=== PATIENT | male | born 1940 | race Hispanic/Latino ===

== ENCOUNTER 2017-12-02 16:10 | Inpatient (IN) | payer OTHER ==
[2017-12-02 16:24] VITALS: BMI 23.6
--- NOTE | 2017-12-02 16:59 | ED PDOC ---
HPI: General Adult Time Seen by Provider: 12/02/17 16:37 Chief Complaint (Nursing): Abnormal Labs Chief Complaint (Provider): abnormal labs History Per: Patient History/Exam Limitations: no limitations Current Symptoms Are (Timing): Still Present Recently: Treated By A Physician Additional Complaint(s): 77yo male sent by PMD for outpatient labs noted today to have critical Hgb level 3.9. States has felt weak with exercise intolerance, noted dark stool and BRBPR. Also notes intermittent chest pains radiating to back and shoulder, none currently. Takes no Rx medications, hasnt been to a PMD since the . Past Medical History Vital Signs: Last Vital Signs Temp 97.8 F 12/02/17 16:23 Pulse 79 12/02/17 16:23 Resp 16 12/02/17 16:23 BP 124/57 L 12/02/17 16:23 Pulse Ox 92 L 12/02/17 16:23 - Allergies Allergies/Adverse Reactions: Allergies Allergy/AdvReac Type Severity Reaction Status Date / Time No Known Allergies Allergy Verified 12/02/17 16:48 - ECG O2 Sat by Pulse Oximetry: 92 Disposition - Disposition
[2017-12-02 17:39] LABS: BASO # 0.1 K/uL (0.0-0.2); BASO % 1.6 % (0.0-2.0); EOS % 1.1 % (0.0-4.0); INR 1.3; LYMPH # 1.8 K/uL (1.0-4.3); LYMPH % 50.3 % (20.0-40.0); MEAN PLATELET VOLUME 8.5 fl (7.2-11.7); MONO # 0.2 K/uL (0.0-0.8); MONO % 5.4 % (0.0-10.0); NEUT # 1.5 K/uL (1.8-7.0); NEUT % 41.6 % (50.0-75.0); NRBC % 0.3 % (0.0-0.0); PROTHROMBIN TIME 14.3 Seconds (9.8-13.1); RBC 3.15 Mil/uL (4.40-5.90); RED CELL DISTRIBUTION WIDTH 24.5 % (11.5-14.5); WHITE BLOOD COUNT 3.5 K/uL (4.8-10.8)
[2017-12-02 17:42] LABS: PARTIAL THROMBOPLASTIN TIME 30.9 Seconds (25.6-37.1)
[2017-12-02 17:59] LABS: ALB/GLOB RATIO 1.4 (1.0-2.1); ALBUMIN 4.6 g/dL (3.5-5.0); ALT/SGPT 25 U/L (21-72); AST/SGOT 28 U/L (17-59); BLOOD UREA NITROGEN 11 mg/dl (9-20); CALCIUM 9.3 mg/dL (8.4-10.2); GFR AFRICAN-AMERICAN > 60; GFR NON-AFRICAN AMERICAN > 60
[2017-12-02] MEDS ORDERED: Iohexol 240 (50 ml) PO ONE (18:11)
[2017-12-02 18:18] LABS: HEMOGLOBIN 4.1 g/dL (12.0-18.0)
[2017-12-02 19:05] LABS: IRON 14 ug/dL (49-181)
[2017-12-02 19:14] LABS: % IRON SATURATION 3 % (20-55); TOTAL IRON BINDING CAPACITY 464 ug/dL (250-450)
--- NOTE | 2017-12-02 19:55 | CP.PCM.HP ---
History of Present Illness - History of Present Illness History of Present Illness: CC: weakness This is a 77 year old male sent by Dr. Franco, his PMD, after finding a low Hg result. The patient has not had a PMD since the 1969's and only two weeks ago began seeing Dr. Franco. 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 He attributes this to a neurologic disorder but does not know what it is. He insists that he never had polio. Over the past 2 years the patient has noticed black stools occasionally and then over the past year began having bright red blood per rectum as well. In the ED, the patient was noted to have a significantly low hemoglobin of 4.1, MCV of 52, consistent with iron deficiency anemia. Patient is being admitted for 3 units PRBC and for gastroenterology evaluation. Last colonoscopy was in 1998, reportedly normal at that time. Of note patient does have history of hemorrhoids and occ painful defecation. Patient denies chest pain, shortness of breath, fevers, chills, nausea, vomiting, diarrhea, headache. All of the patient's and/or family's questions were answered at the bedside. PMD: [place] Present on Admission - Present on Admission Any Indicators Present on Admission: No History of DVT/PE: No History of Uncontrolled Diabetes: No Past Patient History - Past Social History Smoking Status: Unknown If Ever Smoked - NEUROLOGICAL Hx Neurological Disorder: Yes Other/Comment: Paralysis at 16 and walked 63 days later. - PSYCHIATRIC Hx Substance Use: No Meds Allergies/Adverse Reactions: Allergies Allergy/AdvReac Type Severity Reaction Status Date / Time No Known Allergies Allergy Verified 12/02/17 16:48 Physical Exam - Additional Findings Additional findings: Physical exam: Constitutional- cooperative, awake, alert Head- NCAT, PERRL Eye- PERRL, EOMI ENT- normal exam, MMM. Neck- normal inspection, supple, no JVD Respiratory- CTAB, no wheezes rales rhonchi Cardiovascular- RRR, +S1, +S2 no MRG GI/Abdominal- normal bowel sounds, soft, no mass, no hsm Skin- warm, dry. + pale Extremities Exam- normal capillary refill, normal inspection Neurological Exam- alert, awake, oriented Psych- normal mood, normal affect Results - Vital Signs Recent Vital Signs: Last Vital Signs Temp 97.8 F 08/13/18 16:23 Pulse 79 12/02/17 16:23 Resp 16 12/02/17 16:23 BP 124/57 L 12/02/17 16:23 Pulse Ox 92 L 12/02/17 16:59 - Labs Result Diagrams: 12/02/17 17:27 12/02/17 17:27 Labs: Laboratory Results - last 24 hr 12/02/17 12/02/17 12/02/17 17:10 17:27 17:27 WBC 3.5 L RBC 3.15 L Hgb 4.1 L* Hct 16.4 L MCV 52.0 L MCH 13.0 L MCHC 25.0 L RDW 24.5 H Plt Count 266 MPV 8.5 Neut % (Auto) 41.6 L Lymph % (Auto) 50.3 H [place] % (Auto) 5.4 Eos % (Auto) 1.1 Baso % (Auto) 1.6 Neut # (Auto) 1.5 L Lymph # (Auto) 1.8 [place] # (Auto) 0.2 Eos # (Auto) 0.0 Baso # (Auto) 0.1 PT INR APTT Sodium 139 Potassium 3.8 Chloride 102 Carbon Dioxide 23 Anion Gap 18 BUN 11 Creatinine 0.6 L Est GFR ( Amer) > 60 Est GFR (Non-Af Amer) > 60 Random Glucose 92 Calcium 9.3 Iron TIBC % Saturation Ferritin Total Bilirubin 0.8 AST 28 ALT 25 Alkaline Phosphatase 76 Total Protein 7.8 Albumin 4.6 Globulin 3.2 Albumin/Globulin Ratio 1.4 Blood Type A POSITIVE Blood Type Confirm Antibody Screen Negative Crossmatch See Detail BBK History Checked No verified bt 12/02/17 12/02/17 12/02/17 17:27 17:50 18:49 WBC RBC Hgb Hct MCV MCH MCHC RDW Plt Count MPV Neut % (Auto) Lymph % (Auto) [place] % (Auto) Eos % (Auto) Baso % (Auto) Neut # (Auto) Lymph # (Auto) [place] # (Auto) Eos # (Auto) Baso # (Auto) PT 14.3 H INR 1.3 APTT 30.9 Sodium Potassium Chloride Carbon Dioxide Anion Gap BUN Creatinine Est GFR ( Amer) Est GFR (Non-Af Amer) Random Glucose Calcium Iron TIBC % Saturation Ferritin 3.9 L Total Bilirubin AST ALT Alkaline Phosphatase Total Protein Albumin Globulin Albumin/Globulin Ratio Blood Type Blood Type Confirm A POSITIVE Antibody Screen Crossmatch BBK History Checked 12/02/17 18:49 WBC RBC Hgb Hct MCV MCH MCHC RDW Plt Count MPV Neut % (Auto) Lymph % (Auto) [place] % (Auto) Eos % (Auto) Baso % (Auto) Neut # (Auto) Lymph # (Auto) [place] # (Auto) Eos # (Auto) Baso # (Auto) PT INR APTT Sodium Potassium Chloride Carbon Dioxide Anion Gap BUN Creatinine Est GFR ( Amer) Est GFR (Non-Af Amer) Random Glucose Calcium Iron 14 L TIBC 464 H % Saturation 3 L Ferritin Total Bilirubin AST ALT Alkaline Phosphatase Total Protein Albumin Globulin Albumin/Globulin Ratio Blood Type Blood Type Confirm Antibody Screen Crossmatch BBK History Checked Assessment & Plan - Assessment and Plan (Free Text) Plan: This is a 77 year old male sent by Dr. Franco, his PMD, after finding a low Hg result. The patient has not had a PMD since the 1969's and only two weeks ago began seeing Dr. Franco. Over the past 2 years the patient has noticed black stools occasionally and then over the past year began having bright red blood per rectum as well. In the ED, the patient was noted to have a significantly low hemoglobin of 4.1, MCV of 52, consistent with iron deficiency anemia. Patient is being admitted for 3 units PRBC and for gastroenterology evaluation. Last colonoscopy was in 1998, reportedly normal at that time. Of note patient does have history of hemorrhoids and occ painful defecation. Patient denies chest pain, shortness of breath, fevers, chills, nausea, vomiting , diarrhea, headache. All of the patient's and/or family's questions were answered at the bedside. 1) GI bleed, r/o mass vs bleeding hemorrhoid vs other causes of lower gi bleeding. - Admit to telemetry - Consultation with Dr. Rizo appreciated - CT abd/pelvis with IV and PO contrast - 3 units PRBC overnight, repeat CBC in AM - HD stable at this time 2) DVT prophylaxis - SCDs
[2017-12-02] MEDS ORDERED: Iohexol 300 100 ML IJ ONE (20:29)
[2017-12-02] MEDS ORDERED: Sodium Chloride 0.9% 50 ML IV ONE (20:30)
[2017-12-02 21:29] LABS: URINE BACTERIA RARE (<OCC); URINE BILIRUBIN NEGATIVE (NEGATIVE); URINE BLOOD NEGATIVE (NEGATIVE); URINE CLARITY CLEAR (Clear); URINE COLOR COLORLESS (YELLOW); URINE GLUCOSE (UA) NEG (Normal); URINE LEUKOCYTE ESTERASE MOD Leu/uL (Negative); URINE PROTEIN NEGATIVE (NEGATIVE); URINE UROBILINOGEN 0.2-1.0 mg/dL (0.2-1.0)
[2017-12-02] MEDS: Sodium Chloride 0.9% 1,000 ML IV SCH (23:00)
--- NOTE | 2017-12-03 08:43 | RAD ---
HISTORY: COMPARISON: No prior. TECHNIQUE: Chest PA and lateral FINDINGS: LINES AND TUBES: None. LUNG AND PLEURA: The lungs are well inflated and clear. No pleural effusion or pneumothorax. HEART AND MEDIASTINUM: There is mild cardiomegaly. The hilar and mediastinal contours are within normal limits. SKELETAL STRUCTURES: The bony structures are within normal limits for the patient's age. VISUALIZED UPPER ABDOMEN: Normal. OTHER FINDINGS: None. IMPRESSION: No active pulmonary disease.
--- NOTE | 2017-12-03 08:52 | CP.PCM.PN ---
Subjective - Date & Time of Evaluation Date of Evaluation: 12/03/17 Time of Evaluation: 08:00 - Subjective Subjective: Pt feels better , less weak after the blood transfusion staes he has some bright red blood in stool hx of chronic constipation he lives alone walks with walker denies CP no SOB no abd pain no N/V Objective - Vital Signs/Intake and Output Vital Signs (last 24 hours): Temp Pulse Resp BP Pulse Ox 97.6 F 61 20 104/52 L 98 12/03/17 08:28 12/03/17 08:28 12/03/17 08:28 12/03/17 08:28 12/03/17 08:28 Intake and Output: 12/03/17 12/03/17 06:59 18:59 Intake Total 375 425 Balance 375 425 - Medications Medications: Current Medications Ascorbic Acid (Vitamin C 500 Mg Tab) 500 mg PO DAILY [facility] Home Med (Vitamin B Complex [Super B-50 Complex]) 1 cap PO DAILY [facility] Sodium Chloride (Sodium Chloride 0.9%) 1,000 mls @ 75 mls/hr IV .[id number] [facility]NAN[facility]Z Stop: 12/03/17 19:50 Last Admin: 12/02/17 23:00 Dose: 75 mls/hr Iron Sucrose 100 mg/ Sodium (Chloride) 105 mls @ 105 mls/hr IVPB DAILY [facility] Stop: 12/05/17 09:59 Multivitamins/Minerals (Therapeutic-M Tab) 1 tab PO DAILY [facility] Vitamin E (Vitamin E 400 Units Cap) 400 intlu PO DAILY [facility]NANDEZ - Labs Labs: 12/02/17 17:27 12/02/17 17:27 PT 14.3 Seconds (9.8-13.1) H 12/02/17 17:27 INR 1.3 12/02/17 17:27 APTT 30.9 Seconds (25.6-37.1) 12/02/17 17:27 - Constitutional Appears: Non-toxic, No Acute Distress, Chronically Ill - Head Exam Head Exam: NORMAL INSPECTION, NORMOCEPHALIC - Eye Exam Eye Exam: EOMI, Normal appearance Pupil Exam: NORMAL ACCOMODATION - ENT Exam ENT Exam: Mucous Membranes Moist, Normal External Ear Exam - Neck Exam Neck Exam: Full ROM. absent: Meningismus - Respiratory Exam Respiratory Exam: NORMAL BREATHING PATTERN. absent: Respiratory Distress - Cardiovascular Exam Cardiovascular Exam: REGULAR RHYTHM, +S1, +S2 - GI/Abdominal Exam GI & Abdominal Exam: Soft, Normal Bowel Sounds. absent: Tenderness - Extremities Exam Extremities Exam: Normal Capillary Refill. absent: Calf Tenderness, Pedal Edema - Back Exam Back Exam: Full ROM. absent: CVA tenderness (L), CVA tenderness (R) - Neurological Exam Neurological Exam: Alert, Awake, Oriented x3 Neuro motor strength exam: Left Upper Extremity: 5, Right Upper Extremity: 5, Left Lower Extremity: 4, Right Lower Extremity: 4 - Psychiatric Exam Psychiatric exam: Normal Affect, Normal Mood - Skin Skin Exam: Dry, Normal Color, Warm Assessment and Plan - Assessment and Plan (Free Text) Assessment: 77 year old male sent by Dr. Franco, his PMD, after finding a low HgB result. The patient has not had a PMD since the 1969's and only two weeks ago began seeing Dr. Franco. Over the past 2 years the patient has noticed black stools occasionally and then over the past year began having bright red blood per rectum as well. In the ED, the patient was noted to have a significantly low hemoglobin of 4.1, MCV of 52, consistent with iron deficiency anemia. Last colonoscopy was in 1998, reportedly normal at that time. Of note patient does have history of hemorrhoids and occ painful defecation. Patient denies chest pain, shortness of breath, fevers, chills, nausea, vomiting, diarrhea, headache. 1) Severe Anemia sec to Acute and Chronic Blood Loss from GI bleed Etiology of GI Bleeding to be determined - Pt has been feeling weak the past few weeks -Hgb 4.1 on admission - transfused 3 units PRBC overnight- will rpt CBC - Consultation with Dr. Rizo - discussed case, await further recommendation CT abd/pelvis with IV and PO contrast: 1. Distended gallbladder, mild gallbladder wall thickening and cholelithiasis. 2. Mild diffuse dilatation of the common bile duct without evidence for choledocholithiasis. 3. Evaluation of the rectum is limited as oral contrast has not progressed to the rectum at the time of the study. Allowing for this, circumferential mural thickening in the distal rectum and anus is nonspecific and could be related to underdistention however underlying infection/inflammation/neoplasm cannot be excluded. Endoscopic correlation may be performed if clinically indicated. - start Protonix - CEA borderline elevated - Iron low - start Venofer 2. Lower Extremity Weakness , chronic ( hx of Spinal cord injury many years ago ) uses walker at home Physical therapy eval 3) DVT prophylaxis - SCDs - no anticoag sec to GI bleed Full Code Surrogate Decision maker - sister
--- NOTE | 2017-12-03 09:20 | CARD ---
APPROVED REPORT Date of service: 12/02/2017 <Conclusion> Sinus rhythm with premature atrial complexes Nonspecific ST abnormality Abnormal ECG
[2017-12-03 11:28] LABS: MEAN CELL VOLUME 63.1 fl (80.0-94.0); MEAN CORPUSCULAR HEMOGLOBIN 20.3 pg (27.0-31.0); MEAN CORPUSCULAR HGB CONC 32.1 g/dL (33.0-37.0); RBC 3.58 Mil/uL (4.40-5.90); RED CELL DISTRIBUTION WIDTH 36.5 % (11.5-14.5); WHITE BLOOD COUNT 4.9 K/uL (4.8-10.8)
--- NOTE | 2017-12-03 11:44 | CT ---
Date of service: 12/02/2017 PROCEDURE: CT Abdomen and Pelvis with contrast HISTORY: rectal bleed, r/o mass COMPARISON: None. TECHNIQUE: CT scan of the abdomen and pelvis was performed after administration of intravenous contrast. Oral contrast was administered. Coronal and sagittal reformatted images were obtained. Contrast dose: 95 mL Omnipaque 300 Radiation dose: Total exam DLP = 470.61 mGy-cm. This CT exam was performed using one or more of the following dose reduction techniques: Automated exposure control, adjustment of the mA and/or kV according to patient size, and/or use of iterative reconstruction technique. FINDINGS: LOWER THORAX: There is dependent atelectasis in the lung bases. LIVER: Normal in size with homogeneous enhancement. Tiny low-attenuation lesions are too small to characterize by CT criteria. No gross lesion or ductal dilatation. GALLBLADDER AND BILE DUCTS: The gallbladder is distended and there are multiple large gallstones. There is mild gallbladder wall thickening. There is diffuse dilatation of the common bile duct without evidence for choledocholithiasis. PANCREAS: Normal in size with homogeneous enhancement. No gross lesion or ductal dilatation. SPLEEN: Normal in size and appearance. ADRENALS: No discrete nodule. KIDNEYS AND URETERS: Normal in size with homogeneous enhancement. There is a 3 mm nonobstructing stone in the upper pole of the left kidney. No hydronephrosis. No solid mass. VASCULATURE: Atherosclerotic aortoiliac calcifications. No aortic aneurysm. BOWEL: The small bowel loops are normal in caliber. There is mild left colonic diverticulosis without CT evidence for acute diverticulitis. Evaluation of the rectum as oral contrast has not progressed to the rectum. Allowing for this, there is apparent circumferential mural thickening in the distal rectum and anus. APPENDIX: Normal appendix. PERITONEUM: No free fluid. No free air. LYMPH NODES: No enlarged lymph nodes. BLADDER: Unremarkable. REPRODUCTIVE: Normal size prostate gland with central coarse calcifications BONES: No acute fracture. Diffuse bone demineralization and advanced multilevel degenerative disc disease. OTHER FINDINGS: Right inguinal hernia containing small portion of the urinary bladder. IMPRESSION: 1. Distended gallbladder, mild gallbladder wall thickening and cholelithiasis. 2. Mild diffuse dilatation of the common bile duct without evidence for choledocholithiasis. 3. Evaluation of the rectum is limited as oral contrast has not progressed to the rectum at the time of the study. Allowing for this, circumferential mural thickening in the distal rectum and anus is nonspecific and could be related to underdistention however underlying infection/inflammation/neoplasm cannot be excluded. Endoscopic correlation may be performed if clinically indicated. A preliminary report was provided by [email or web address].
[2017-12-03] MEDS: Multivitamin Vitamin B Complex (Nephro-Vite) Tab PO SCH (11:45)
[2017-12-03] MEDS: Multivitamin With Minerals Tab PO SCH (11:45)
[2017-12-03] MEDS: Sodium Chloride 0.9% 1,000 ML IV SCH (11:46)
[2017-12-03 11:47] LABS: HEMOGLOBIN 7.3 g/dL (12.0-18.0)
[2017-12-03 13:11] LABS: BLOOD UREA NITROGEN 9 mg/dl (9-20); CALCIUM 8.7 mg/dL (8.4-10.2); GFR AFRICAN-AMERICAN > 60; GFR NON-AFRICAN AMERICAN > 60
--- NOTE | 2017-12-04 00:52 | CON ---
Copied To: Torito Jaramillo MD Attending MD: Torito Jaramillo MD DATE: 12/03/2017 REFERRED BY: Gigi Langford DO HISTORY OF PRESENT ILLNESS: This is a very pleasant 77-year-old gentleman who has not seen a physician for 20 years with progressive weakness and fatigue, probably prompting him to see a physician who found him to be severely anemic and referred him for admission yesterday here to the hospital where he was found to have a hemoglobin of 4.1. At the time of my evaluation this afternoon, he was lying comfortably in bed. He has no nausea, vomiting or heartburn, but he has been having sometime on and off dysphagia with some difficulty and discomfort when he swallows. He has not had any hematemesis. He denies any abdominal pain or discomfort. He has had some black stools recently and bright red blood per rectum on and off for several years. He did have a colonoscopy back in 1997. MEDICATIONS: He was on no medications. ALLERGIES: HE HAS AN ALLERGY TO PENICILLIN. PAST MEDICAL HISTORY: Noncontributory. PAST SURGICAL HISTORY: He had a surgery in his lower extremity years ago from trauma. He also had paralysis as young man which resolved after two months. It is of unknown etiology. FAMILY HISTORY: Noncontributory. SOCIAL HISTORY: He is a former smoker and drinker, but states he has done neither for over 20 years. PHYSICAL EXAMINATION: GENERAL: He is a well-developed, well-nourished thin gentleman. Awake, alert and oriented x3, in no acute distress. VITAL SIGNS: Stable. He is afebrile. ABDOMEN: Soft, flat with positive bowel sounds. Nontender, nondistended. No hepatosplenomegaly is appreciated on exam. LABORATORY DATA: His initial hemoglobin is 4.1. After three units today, it is up to 7.3. His white count is normal. His platelets are normal as well. SMA-7 is unremarkable. LFTs are all within normal limits. The CEA level is pending. CAT scan shows some gallstones, gallbladder wall thickening, mildly dilated CBD, and under distention of the rectum circumferential thickened look to the rectal wall of unclear etiology. IMPRESSION AND PLAN: A 77-year-old gentleman with severe anemia as well as gallstones and dilated common bile duct, referred for gastroenterology evaluation. He seems to be asymptomatic from the gallstones. The liver function tests are normal. Therefore, I doubt that he has any choledocholithiasis nor do I think he needs a laparoscopic cholecystectomy at this point in time given his lack of symptomatology. However, he surely does require both upper and lower endoscopy. I discussed on the risks and benefits of both, and he is agreeable to them. We will try to see the timing of when we can get this done over the next 24 to 48 hours. We will prepare him and then perform the examination and make further recommendations accordingly. Thank you very much for this referral. Torito Jaramillo MD
[2017-12-04 05:33] LABS: HEMOGLOBIN 7.1 g/dL (12.0-18.0); MEAN CELL VOLUME 64.6 fl (80.0-94.0); RBC 3.57 Mil/uL (4.40-5.90); RED CELL DISTRIBUTION WIDTH 36.9 % (11.5-14.5); WHITE BLOOD COUNT 3.8 K/uL (4.8-10.8)
[2017-12-04 06:00] LABS: BLOOD UREA NITROGEN 6 mg/dl (9-20); CALCIUM 8.5 mg/dL (8.4-10.2); GFR AFRICAN-AMERICAN > 60; GFR NON-AFRICAN AMERICAN > 60
--- NOTE | 2017-12-04 07:30 | CP.PCM.PN ---
Subjective - Date & Time of Evaluation Date of Evaluation: 12/04/17 Time of Evaluation: 11:30 - Subjective Subjective: Patient seen and examined. No acute issues overnight. For colonoscopy and EGD today by GI . H&H stable Hgb 7.1 Objective - Vital Signs/Intake and Output Vital Signs (last 24 hours): Temp Pulse Resp BP Pulse Ox 98.1 F 57 L 18 102/59 L 95 12/04/17 04:53 12/04/17 04:53 12/04/17 04:53 12/04/17 04:53 12/04/17 04:53 - Medications Medications: Current Medications Ascorbic Acid (Vitamin C 500 Mg Tab) 500 mg PO DAILY [facility] Last Admin: 12/03/17 09:52 Dose: 500 mg Iron Sucrose 100 mg/ Sodium (Chloride) 105 mls @ 105 mls/hr IVPB DAILY [facility] Stop: 12/05/17 09:59 Last Admin: 12/03/17 11:44 Dose: 105 mls/hr Multivitamins/Minerals (Therapeutic-M Tab) 1 tab PO DAILY [facility] Last Admin: 12/03/17 11:45 Dose: 1 tab Pantoprazole Sodium (Protonix Inj) 40 mg IVP DAILY [facility] Last Admin: 12/03/17 15:00 Dose: 40 mg Vitamin B Complex/Vit C/Folic Acid (Nephro-Adolfo) 1 tab PO DAILY [facility]NAN[facility] Last Admin: 12/03/17 11:45 Dose: 1 tab Vitamin E (Vitamin E 400 Units Cap) 400 intlu PO DAILY [facility]NAN[facility]Z Last Admin: 12/03/17 11:46 Dose: 400 intlu - Labs Labs: 12/04/17 04:20 12/04/17 04:20 PT 14.3 Seconds (9.8-13.1) H 12/02/17 17:27 INR 1.3 12/02/17 17:27 APTT 30.9 Seconds (25.6-37.1) 12/02/17 17:27 - Constitutional Appears: Non-toxic, No Acute Distress - Head Exam Head Exam: ATRAUMATIC, NORMOCEPHALIC - Eye Exam Eye Exam: PERRL Pupil Exam: NORMAL ACCOMODATION - ENT Exam ENT Exam: Mucous Membranes Moist, Normal Exam - Neck Exam Neck Exam: Full ROM, Normal Inspection - Respiratory Exam Respiratory Exam: Clear to Ausculation Bilateral, NORMAL BREATHING PATTERN. absent: Respiratory Distress - Cardiovascular Exam Cardiovascular Exam: REGULAR RHYTHM, +S1. absent: JVD - GI/Abdominal Exam GI & Abdominal Exam: Normal Bowel Sounds. absent: Distended, Guarding, Rebound - Rectal Exam Rectal Exam: Deferred - Extremities Exam Extremities Exam: absent: Pedal Edema - Back Exam Back Exam: NORMAL INSPECTION - Neurological Exam Neurological Exam: Alert, Awake, CN II-XII Intact - Psychiatric Exam Psychiatric exam: Agitated, Anxious - Skin Skin Exam: Dry, Pallor, Warm Assessment and Plan - Assessment and Plan (Free Text) Assessment: 77 year old male sent by Dr. Franco, his PMD, after finding a low HgB result. The patient has not had a PMD since the 1969's and only two weeks ago began seeing Dr. Franco. Over the past 2 years the patient has noticed black stools occasionally and then over the past year began having bright red blood per rectum as well. In the ED, the patient was noted to have a significantly low hemoglobin of 4.1, MCV of 52, consistent with iron deficiency anemia. Last colonoscopy was in 1998, reportedly normal at that time. Of note patient does have history of hemorrhoids and painful defecation. Patient denies chest pain, shortness of breath, fevers, chills, nausea, vomiting, diarrhea, headache. He was admitted for severe anemia , transfused with 3 unit PRBC and HGi consulted Today planned for colonoscopy and EGD 1) Severe Anemia sec to Acute and Chronic Blood Loss from GI bleed Etiology of GI Bleeding to be determined Hgb 4.1 on admission . s/p 3 unit PRBC transfusion with Hgb 7.1 CT abd/pelvis with IV and PO contrast: 1. Distended gallbladder, mild gallbladder wall thickening and cholelithiasis. 2. Mild diffuse dilatation of the common bile duct without evidence for choledocholithiasis. 3. Evaluation of the rectum is limited as oral contrast has not progressed to the rectum at the time of the study. Allowing for this, circumferential mural thickening in the distal rectum and anus is nonspecific and could be related to underdistention however underlying infection/inflammation/neoplasm cannot be excluded. 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 Continue Venofer for iron deficiency and Protonix Will follow up biopsy results Surgery consult for rectal prolapse 2. Lower Extremity Weakness , chronic ( hx of Spinal cord injury many years ago ) uses walker at home Physical therapy eval 3. DVT prophylaxis SCDs no anticoag sec to GI bleed
[2017-12-04] MEDS: Multivitamin Vitamin B Complex (Nephro-Vite) Tab PO SCH (08:56)
[2017-12-04] MEDS: Multivitamin With Minerals Tab PO SCH (08:57)
[2017-12-04] MEDS ORDERED: Lactated Ringer's 500 ML IV ONE (14:32)
[2017-12-04] MEDS ORDERED: Midazolam 2 MG/2 ML VIAL ONE (14:45)
[2017-12-04] MEDS ORDERED: Propofol 10 mg/ml Inj (20 ML) ONE (14:45)
[2017-12-04] MEDS ORDERED: Lactated Ringer's 500 ML IV SCH (15:30)
[2017-12-04 17:39] LABS: FOLATE 19.9 ng/mL
[2017-12-04] MEDS: Sodium Chloride 0.9% 1,000 ML IV SCH (22:00)
[2017-12-05] MEDS: Sodium Chloride 0.9% 1,000 ML IV SCH (00:44)
[2017-12-05 06:57] LABS: BLOOD UREA NITROGEN 8 mg/dl (9-20); CALCIUM 8.7 mg/dL (8.4-10.2); GFR AFRICAN-AMERICAN > 60; GFR NON-AFRICAN AMERICAN > 60
[2017-12-05 08:13] VITALS: RESP 20
[2017-12-05] MEDS: Multivitamin Vitamin B Complex (Nephro-Vite) Tab PO SCH (08:43)
--- NOTE | 2017-12-05 11:57 | CP.PCM.DIS ---
Provider - Provider Date of Admission: 12/02/17 17:09 Attending physician: Gigi Langford DO Primary care physician: Dr. Franco Consults: Gastroenterology consult surgery consult Time Spent in preparation of Discharge (in minutes): 20 Hospital Course - Lab Results Lab Results: Most Recent Lab Values WBC 3.8 K/uL (4.8-10.8) L 12/04/17 04:20 RBC 3.57 Mil/uL (4.40-5.90) L 12/04/17 04:20 Hgb 7.1 g/dL (12.0-18.0) L 12/04/17 04:20 Hct 23.0 % (35.0-51.0) L 12/04/17 04:20 MCV 64.6 fl (80.0-94.0) L 12/04/17 04:20 MCH 20.0 pg (27.0-31.0) L 12/04/17 04:20 MCHC 31.0 g/dL (33.0-37.0) L 12/04/17 04:20 RDW 36.9 % (11.5-14.5) H 12/04/17 04:20 Plt Count 194 K/uL (130-400) 12/04/17 04:20 MPV 8.5 fl (7.2-11.7) 12/02/17 17:27 Neut % (Auto) 41.6 % (50.0-75.0) L 12/02/17 17: Lymph % (Auto) 50.3 % (20.0-40.0) H 12/02/17 17:27 [place] % (Auto) 5.4 % (0.0-10.0) 12/02/17 17:27 Eos % (Auto) 1.1 % (0.0-4.0) 12/02/17 17:27 Baso % (Auto) 1.6 % (0.0-2.0) 12/02/17 17:27 Neut # (Auto) 1.5 K/uL (1.8-7.0) L 12/02/17 17:27 Lymph # (Auto) 1.8 K/uL (1.0-4.3) 12/02/17 17:27 [place] # (Auto) 0.2 K/uL (0.0-0.8) 12/02/17 17:27 Eos # (Auto) 0.0 K/uL (0.0-0.7) 12/02/17 17:27 Baso # (Auto) 0.1 K/uL (0.0-0.2) 12/02/17 17:27 PT 14.3 Seconds (9.8-13.1) H 12/02/17 17:27 INR 1.3 12/02/17 17:27 APTT 30.9 Seconds (25.6-37.1) 12/02/17 17:27 Sodium 140 mmol/l (132-148) 12/05/17 05:20 Potassium 4.2 MMOL/L (3.6-5.0) 12/05/17 05:20 Chloride 108 mmol/L (98-107) H 12/05/17 05:20 Carbon Dioxide 23 mmol/L (22-30) 12/05/17 05:20 Anion Gap 13 (10-20) 12/05/17 05:20 BUN 8 mg/dl (9-20) L 12/05/17 05:20 Creatinine 0.5 mg/dl (0.8-1.5) L 12/05/17 05:20 Est GFR ( Amer) > 60 12/05/17 05:20 Est GFR (Non-Af Amer) > 60 12/05/17 05:20 POC Glucose (mg/dL) 84 mg/dL (65-110) 12/05/17 04:57 Random Glucose 92 mg/dL (75-110) 12/05/17 05:20 Calcium 8.7 mg/dL (8.4-10.2) 12/05/17 05:20 Iron 14 ug/dL (49-181) L 12/02/17 18:49 TIBC 464 ug/dL (250-450) H 12/02/17 18:49 % Saturation 3 % (20-55) L 12/02/17 18:49 Ferritin 3.9 ng/Ml (17.9-464) L 12/02/17 18:49 Total Bilirubin 0.8 mg/dl (0.2-1.3) 12/02/17 17:27 AST 28 U/L (17-59) 08/13/18 17:27 ALT 25 U/L (21-72) 12/02/17 17:27 Alkaline Phosphatase 76 U/L (38-126) 12/02/17 17:27 Total Protein 7.8 G/DL (6.3-8.2) 12/02/17 17:27 Albumin 4.6 g/dL (3.5-5.0) 12/02/17 17:27 Globulin 3.2 gm/dL (2.2-3.9) 12/02/17 17:27 Albumin/Globulin Ratio 1.4 (1.0-2.1) 12/02/17 17:27 Carcinoembryonic Ag 3.6 ng/mL (0-3.0) H 12/03/17 12:41 Vitamin B12 973 pg/mL (239-931) H 12/04/17 04:20 Folate 19.9 ng/mL 12/04/17 04:20 TSH 3rd Generation 3.29 mIU/ML (0.46-4.68) 12/04/17 04:20 Urine Color Colorless (YELLOW) 12/02/17 20:50 Urine Clarity Clear (Clear) 12/02/17 20:50 Urine pH 7.0 (5.0-8.0) 12/02/17 20:50 Ur Specific [place] < 1.005 (1.003-1.030) 12/02/17 20:50 Urine Protein Negative mg/dL (NEGATIVE) 12/02/17 20:50 Urine Glucose (UA) Neg mg/dL (Normal) 12/02/17 20:50 Urine Ketones Negative mg/dL (NEGATIVE) 12/02/17 20:50 Urine Blood Negative (NEGATIVE) 12/02/17 20:50 Urine Nitrate Negative (NEGATIVE) 12/02/17 20:50 Urine Bilirubin Negative (NEGATIVE) 12/02/17 20:50 Urine Urobilinogen 0.2-1.0 mg/dL (0.2-1.0) 12/02/17 20:50 Ur Leukocyte Esterase Mod [place]/uL (Negative) 12/02/17 20:50 Urine RBC (Auto) 1 /hpf (0-3) 12/02/17 20:50 Urine Microscopic WBC 5 /hpf (0-5) 12/02/17 20:50 Urine Bacteria Rare (<OCC) 12/02/17 20:50 Blood Type A POSITIVE 12/02/17 17:10 Blood Type Confirm A POSITIVE 12/02/17 17:50 Antibody Screen Negative 12/02/17 17:10 Crossmatch See Detail 12/02/17 17:10 BBK History Checked No verified bt 12/02/17 17:10 - Hospital Course Hospital Course: 77 year old male sent by Dr. Franco, his PMD, after finding a low HgB result. The patient has not had a PMD since the 1969's and only two weeks ago began seeing Dr. Franco. Over the past 2 years the patient has noticed black stools occasionally and then over the past year began having bright red blood per rectum as well. In the ED, the patient was noted to have a significantly low hemoglobin of 4.1, MCV of 52, consistent with iron deficiency anemia. Last colonoscopy was in 1998, reportedly normal at that time. Of note patient does have history of hemorrhoids and painful defecation.He also have history of spinal cord injury many years ago and since than does manual fecal disimpaction on and off. Patient denied chest pain, shortness of breath, fevers, chills, nausea, vomiting, diarrhea, headache, weight loss. He was admitted for severe anemia , transfused with 3 unit PRBC and GI consulted . hgb post transfusion went up to 7.1 and remained stable. Work up showed severe iron deficiency and Venofer IV was given CT abd/pelvis with IV and PO contrast: 1. Distended gallbladder, mild gallbladder wall thickening and cholelithiasis. 2. Mild diffuse dilatation of the common bile duct without evidence for choledocholithiasis. 3. Evaluation of the rectum is limited as oral contrast has not progressed to the rectum at the time of the study. Allowing for this, circumferential mural thickening in the distal rectum and anus is nonspecific and could be related to underdistention however underlying infection/inflammation/neoplasm cannot be excluded. He underwent EGD and colonoscopy that showed periampullary mass that was biopsied and grade IV recatl prolapse. Surgery was consulted and surgical correction of prolapse was offered . All results were explained to patient and nephew in detail and all questions answered. Patient currently is hemodynamically stable, afebrile , hgb 7.1 ( stable) , tolerating Poi intake, denies any abdominal pain or discomfort , no bleeding , ready to go home/. Will discharge patient home. Plan is to follow up with Dr. Rizo this next week in his office for biopsy results and based on the results to follow up with surgery about correction of rectal prolapse. Will give prescription for ferrous sulfate supplements 1. Severe Anemia sec to Acute and Chronic Blood Loss from GI bleed 2. Grade IV rectal prolapse 3. Periampullary mass -- unknown etiology - biospy results to be followed as outpatient 4. Severe iron deficiency 5. Lower Extremity Weakness , chronic ( hx of Spinal cord injury many years ago ) uses walker at home Discharge Exam - Head Exam Head Exam: ATRAUMATIC, NORMOCEPHALIC - Eye Exam Eye Exam: EOMI, Normal appearance, PERRL Pupil Exam: NORMAL ACCOMODATION - ENT Exam ENT Exam: Mucous Membranes Moist, Normal Exam - Neck Exam Neck exam: Full Rom, Normal Inspection - Respiratory Exam Respiratory Exam: Clear to PA & Lateral, NORMAL BREATHING PATTERN. absent: Rales, Rhonchi, Wheezes - Cardiovascular Exam Cardiovascular Exam: REGULAR RHYTHM, RRR, +S1, +S2. absent: JVD - GI/Abdominal Exam GI & Abdominal Exam: Normal Bowel Sounds, Soft. absent: Distended, Guarding, Rebound, Tenderness - Rectal Exam Rectal Exam: Deferred - Extremities Exam Extremities exam: normal inspection, pedal pulses present - Back Exam Back exam: NORMAL INSPECTION - Neurological Exam Neurological exam: Alert, CN II-XII Intact, Oriented x3 - Psychiatric Exam Psychiatric exam: Normal Affect - Skin Skin Exam: Dry, Pallor, Warm Discharge Plan - Discharge Medications Prescriptions: Ferrous Sulfate 325 mg PO BID #60 tablet - Follow Up Plan Condition: STABLE Disposition: HOME/ ROUTINE Patient education suggested?: Yes Instructions: Anemia of Chronic Disease (DC), Rectal Prolapse in Adults Additional Instructions: follow up with in 1 week Referrals: Adrian Webber MD [Staff Provider] - Neftaly Franco MD [Family Provider] - Tim Rizo MD, PhD [Staff Provider] -
[2017-12-05] MEDS ORDERED: Chlorhexidine Gluconate 1 APPL/PKT TP ONE (13:02)
--- NOTE | 2017-12-05 13:54 | CP.PCM.CON ---
History of Present Illness - History of Present Illness History of Present Illness: 77 y.o. male was admitted to the hospital for anemia and was transfused PRBCs. Patient states that he has been having problem with "hemorrhoids" as per patient for at least 20 years but and will have occasional bleeding after defecation, however during the course of the last few months the bleeding has gotten worse. Denies any abdominal pain, no nausea, no vomiting, no fever or chills, passing flatus and having bowel movements, tolerating regular diet. Patient underwent colonoscopy and EGD with Dr. Em yesterday showing oma -ampullary mass in the duodenum that was biopsied and patient was found to have rectal prolapse on the physical exam. No urinary symptoms, no other complains at present time. Review of Systems - Constitutional Constitutional: As Per HPI - EENT Eyes: Other (unremarkable) Ears: Other (unremarkable) Nose/Mouth/Throat: Other (unremarkable) - Cardiovascular Cardiovascular: Other (unremarkable) - Respiratory Respiratory: Other (unremarkable) - Gastrointestinal Gastrointestinal: As Per HPI - Genitourinary Genitourinary: As Per HPI - Reproductive: Male Reproductive:Male: Other (unremarkable) - Musculoskeletal Musculoskeletal: Other (unremarkable) - Integumentary Integumentary: Other (unremarkable) - Psychiatric Psychiatric: Other (unremarkable) - Endocrine Endocrine: Other (unremarkable) - Hematologic/Lymphatic Hematologic: Other (unremarkable) Past Patient History - Past Medical History & Family History Past Medical History?: Yes - Past Social History Smoking Status: Never Smoked - CARDIAC Hx Cardiac Disorders: No - PULMONARY Hx Respiratory Disorders: No - NEUROLOGICAL Hx Neurological Disorder: Yes Hx Paralysis: Yes (pt states when he was a child but walks with a walker) - HEENT Hx HEENT Problems: No - RENAL Hx Chronic Kidney Disease: No - ENDOCRINE/METABOLIC Hx Endocrine Disorders: No - HEMATOLOGICAL/ONCOLOGICAL Hx Blood Disorders: No - INTEGUMENTARY Hx Dermatological Problems: No - MUSCULOSKELETAL/RHEUMATOLOGICAL Hx Musculoskeletal Disorders: No Hx Falls: No - GASTROINTESTINAL Hx Gastrointestinal Disorders: No - GENITOURINARY/GYNECOLOGICAL Hx Genitourinary Disorders: No - PSYCHIATRIC Hx Psychophysiologic Disorder: No Hx Substance Use: No - SURGICAL HISTORY Hx Surgeries: Yes Hx Appendectomy: Yes Hx Arteriovenous Shunt: Yes Hx Tonsillectomy: Yes Other/Comment: [id number], left femur ORIF - ANESTHESIA Hx Anesthesia: Yes Hx Anesthesia Reactions: No Hx Malignant Hyperthermia: No Has any member of the family had a problem w/ anesthesia?: No Meds Home Medications: Home Medication List Medication Instructions Recorded Confirmed Type Ferrous Sulfate 325 mg PO BID #60 tablet 12/05/17 Rx Allergies/Adverse Reactions: Allergies Allergy/AdvReac Type Severity Reaction Status Date / Time Penicillins Allergy RASH Verified 12/02/17 23:20 - Medications Medications: Current Medications Ascorbic Acid (Vitamin C 500 Mg Tab) 500 mg PO DAILY [facility] Last Admin: 12/05/17 08:43 Dose: 500 mg Sodium Chloride (Sodium Chloride 0.9%) 1,000 mls @ 42 mls/hr IV .[id number] [facility] Stop: 12/05/17 21:22 Last Admin: 12/05/17 00:44 Dose: 42 mls/hr Pantoprazole Sodium (Protonix Inj) 40 mg IVP DAILY [facility] Last Admin: 12/05/17 08:43 Dose: 40 mg Vitamin B Complex/Vit C/Folic Acid (Nephro-Adolfo) 1 tab PO DAILY [facility] Last Admin: 12/05/17 08:43 Dose: 1 tab Vitamin E (Vitamin E 400 Units Cap) 400 intlu PO DAILY [facility] Last Admin: 12/05/17 08:43 Dose: 400 intlu Physical Exam - Constitutional Appears: Well, Non-toxic, No Acute Distress - Head Exam Head Exam: ATRAUMATIC, NORMAL INSPECTION, NORMOCEPHALIC - Eye Exam Eye Exam: EOMI, Normal appearance, PERRL Pupil Exam: NORMAL ACCOMODATION, PERRL - ENT Exam ENT Exam: Mucous Membranes Moist, Normal Exam - Neck Exam Neck exam: Positive for: Normal Inspection - Respiratory Exam Respiratory Exam: Clear to Auscultation Bilateral - Cardiovascular Exam Cardiovascular Exam: REGULAR RHYTHM, +S1, +S2 - GI/Abdominal Exam GI & Abdominal Exam: Normal Bowel Sounds, Soft Additional comments: NT, ND, BS+, no rebound, no guarding, well healed scar from prior appendectomy - Rectal Exam Additional comments: Reducible rectal prolapse, non tender to palpation, no palpable masses, no gross blood - Neurological Exam Neurological exam: Alert, Oriented x3 - Psychiatric Exam Psychiatric exam: Normal Affect, Normal Mood - Skin Skin Exam: Dry, Intact, Normal Color, Warm Results - Vital Signs Recent Vital Signs: Last Vital Signs Temp 98.2 F 12/05/17 08:00 Pulse 61 12/05/17 08:00 Resp 20 12/05/17 08:00 BP 109/59 L 12/05/17 08:00 Pulse Ox 98 12/05/17 08:00 - Labs Result Diagrams: 12/04/17 04:20 12/05/17 05:20 Labs: Laboratory Results - last 24 hr 12/04/17 12/05/17 12/05/17 04:20 04:57 05:20 Sodium 140 Potassium 4.2 Chloride 108 H Carbon Dioxide 23 Anion Gap 13 BUN 8 L Creatinine 0.5 L Est GFR ( Amer) > 60 Est GFR (Non-Af Amer) > 60 POC Glucose (mg/dL) 84 Random Glucose 92 Calcium 8.7 Folate 19.9 - Imaging and Cardiology CT scan - abdomen Status: Image reviewed by me, Report reviewed by me Assessment & Plan - Assessment and Plan (Free Text) Assessment: 77 y.o. male with oma-ampullary mass and reducible rectal prolapse Plan: - Monitor Hb/Hct - Will await the results of the oma-ampullary mass biopsy - I have explained to the patient that he will need surgery for rectal prolapse and he told me he will follow up with me in the office, but he will think about surgery
[2017-12-05 15:37] VITALS: BP 115/53; PULSE 64; TEMP 97.6; O2SAT 95
== END 2017-12-05 18:10 | disposition home or self-care (01) | DRG 378 ==
LOC: H.ER 16:10 → H.ERHOLD 17:09 → H.TEL 22:20
PROVIDERS: ADMIT Internal Medicine; ATTEND Internal Medicine
PROC: 30233N1 Transfusion of Nonautologous Red Blood Cells into Peripheral Vein, Percutaneous Approach (ICD-10-PCS; 2017-12-02)
PROC: 0DJD8ZZ Inspection of Lower Intestinal Tract, Via Natural or Artificial Opening Endoscopic (ICD-10-PCS; 2017-12-04)
PROC: 0DB98ZX Excision of Duodenum, Via Natural or Artificial Opening Endoscopic, Diagnostic (ICD-10-PCS; principal; 2017-12-04 14:30)
PROC: 0DB68ZX Excision of Stomach, Via Natural or Artificial Opening Endoscopic, Diagnostic (ICD-10-PCS; 2017-12-04 14:30)
DX: K92.1 Melena (principal); D62 Acute posthemorrhagic anemia; K62.3 Rectal prolapse; K31.7 Polyp of stomach and duodenum; K26.9 Duodenal ulcer, unspecified as acute or chronic, without hemorrhage or perforation; K57.30 Diverticulosis of large intestine without perforation or abscess without bleeding; K80.20 Calculus of gallbladder without cholecystitis without obstruction; R19.09 Other intra-abdominal and pelvic swelling, mass and lump; K59.09 Other constipation; R53.1 Weakness; Z88.0 Allergy status to penicillin; Z87.828 Personal history of other (healed) physical injury and trauma; Z87.891 Personal history of nicotine dependence; Z90.49 Acquired absence of other specified parts of digestive tract

== ENCOUNTER 2018-03-28 11:39 | Emergency (ER) | payer OTHER ==
[2018-03-28 11:47] VITALS: BMI 25.8
--- NOTE | 2018-03-28 13:36 | ED PDOC ---
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 Pt reports feeling well at this time however, no severe abdominal pain, no fever, chills nausea or vomiting. Last BM was this am, normal. PMD: [place] Past Medical History Reviewed: Nursing Documentation, Vital Signs Vital Signs: Last Vital Signs Temp 97 F L 03/28/18 11:46 Pulse 80 03/28/18 11:46 Resp 20 03/28/18 11:46 BP 137/87 03/28/18 11:46 Pulse Ox 98 03/28/18 11:46 - Medical History PMH: Denies: Chronic Kidney Disease Other PMH: paralysis - Surgical History Surgical History: Appendectomy, Tonsillectomy - Family History Family History: States: Unknown Family Hx - Living Arrangements Living Arrangements: With Family - Social History Current smoker - smoking cessation education provided: No Alcohol: None Drugs: Denies - Home Medications Home Medications: Ambulatory Orders Medication Instructions Recorded Ascorbic Acid [Vitamin C 500 mg 500 mg PO DAILY 12/02/17 Tab] Multivitamin [Multi-Vitamin Daily] 1 tab PO DAILY 12/02/17 RX: Vitamin B Complex [Super B-50 1 cap PO DAILY 12/02/17 Complex] Vitamin E [Vitamin E 400 Units Cap] 400 unit PO DAILY 12/02/17 RX: Ferrous Sulfate 325 mg PO BID #60 tablet 12/05/17 Cephalexin [cephalexin] 500 mg PO QID 10 Days cap 03/28/18 - Allergies Allergies/Adverse Reactions: Allergies Allergy/AdvReac Type Severity Reaction Status Date / Time Penicillins Allergy RASH Verified 03/28/18 12:14 Review of Systems ROS Statement: Except As Marked, All Systems Reviewed And Found Negative Genitourinary Male: Positive for: Other (retention) Physical Exam - Reviewed Nursing Documentation Reviewed: Yes Vital Signs Reviewed: Yes - Physical Exam Appears: Positive for: Well, Non-toxic, No Acute Distress Head Exam: Positive for: ATRAUMATIC, NORMAL INSPECTION, NORMOCEPHALIC Skin: Positive for: Normal Color, Warm, DRY Eye Exam: Positive for: EOMI, Normal appearance, PERRL ENT: Positive for: Normal ENT Inspection Neck: Positive for: Normal, Painless ROM Cardiovascular/Chest: Positive for: Regular Rate, Rhythm Respiratory: Positive for: CNT, Normal Breath Sounds Gastrointestinal/Abdominal: Positive for: Normal Exam, Soft. Negative for: Tenderness, Distended, Guarding Back: Positive for: Normal Inspection Extremity: Positive for: Normal ROM Neurologic/Psych: Positive for: Alert, Oriented - Laboratory Results Result Diagrams: 03/28/18 14:02 03/28/18 14:02 - ECG O2 Sat by Pulse Oximetry: 98 Medical Decision Making Medical Decision Making: Bladder scan 237, Pt noted to have saturated diaper. Labs resulted and reviewed with Pt who demonstrated full understanding and Pt started on IV Rocephin for UTI U.Culture sent Pt doing well on re-eval, remains afebrile. Tolerating PO well. no complaints of abdominal pain and Pt able to urinate without difficulty. stable for discharge home outpt Disposition - Clinical Impression Clinical Impression: Urinary tract infection - Patient ED Disposition Is Patient to be Admitted: No - Disposition Disposition: Routine/Home Disposition Time: 19:05 Condition: STABLE Prescriptions: Cephalexin [cephalexin] 500 mg PO QID 10 Days cap Instructions: Urinary Tract Infections in Adults Forms: [facility] ([place]ese)
[2018-03-28 14:18] LABS: BASO # 0.1 K/uL (0.0-0.2); BASO % 1.1 % (0.0-2.0); EOS # 0.2 K/uL (0.0-0.7); EOS % 1.7 % (0.0-4.0); HEMOGLOBIN 13.3 g/dL (12.0-18.0); LYMPH # 1.1 K/uL (1.0-4.3); LYMPH % 12.5 % (20.0-40.0); MEAN CORPUSCULAR HEMOGLOBIN 28.2 pg (27.0-31.0); MEAN CORPUSCULAR HGB CONC 32.1 g/dL (33.0-37.0); MEAN PLATELET VOLUME 7.4 fl (7.2-11.7); MONO # 0.9 K/uL (0.0-0.8); MONO % 9.6 % (0.0-10.0); NEUT # 6.7 K/uL (1.8-7.0); NEUT % 75.1 % (50.0-75.0); RBC 4.7 Mil/uL (4.40-5.90); RED CELL DISTRIBUTION WIDTH 21.2 % (11.5-14.5)
[2018-03-28 14:25] LABS: ALB/GLOB RATIO 1.1 (1.0-2.1); ALT/SGPT 29 U/L (21-72); AST/SGOT 29 U/L (17-59); BLOOD UREA NITROGEN 14 mg/dl (9-20); CALCIUM 9.4 mg/dL (8.4-10.2); GFR NON-AFRICAN AMERICAN > 60
[2018-03-28] MEDS ORDERED: Iohexol 300 100 ML IJ ONE (15:08)
[2018-03-28] MEDS ORDERED: Sodium Chloride 0.9% 50 ML IV ONE (15:09)
--- NOTE | 2018-03-28 15:53 | CT ---
Date of service: 03/28/2018 PROCEDURE: CT Abdomen and Pelvis with and without intravenous contrast HISTORY: chronic urinary resistence r/o obstruction COMPARISON: 12/02/17 TECHNIQUE: Axial images of the abdomen were obtained in the pre contrast, portal venous and delayed phases of enhancement. Coronal and sagittal reformats were generated. Contrast dose: Radiation dose: Total exam DLP = 524.89 mGy-cm. This CT exam was performed using one or more of the following dose reduction techniques: Automated exposure control, adjustment of the mA and/or kV according to patient size, and/or use of iterative reconstruction technique. FINDINGS: LOWER THORAX: Unremarkable. LIVER: Unremarkable. No gross lesion or ductal dilatation. GALLBLADDER AND BILE DUCTS: Cholelithiasis. PANCREAS: Unremarkable. No gross lesion or ductal dilatation. SPLEEN: Unremarkable. ADRENALS: Unremarkable. No mass. KIDNEYS AND URETERS: Unremarkable. No hydronephrosis. No solid mass. VASCULATURE: Unremarkable. No aortic aneurysm. No aortic atherosclerotic calcification or mural plaque present. BOWEL: New extensive luminal narrowing and abnormal mural enhancement involving the rectum predominately on the right side. Findings compatible with carcinoma.. No obstruction. APPENDIX: Normal appendix. PERITONEUM: Unremarkable. No free fluid. No free air. LYMPH NODES: Unremarkable. No enlarged lymph nodes. BLADDER: Minimal right-sided bladder diverticulum. REPRODUCTIVE: Unremarkable. BONES: Severe bilateral degenerative changes of the hips. OTHER FINDINGS: None. IMPRESSION: New extensive luminal narrowing with thickening and abnormal mural enhancement involving the rectum predominately on the right side. Findings compatible with carcinoma.. Cholelithiasis. Mild biliary dilatation.
[2018-03-28 16:50] LABS: URINE AMORPHOUS SEDIMENT OCC /ul (<OCC); URINE BACTERIA MANY (<OCC); URINE BILIRUBIN NEGATIVE (NEGATIVE); URINE CLARITY TURBID (Clear); URINE COLOR AMBER (YELLOW); URINE GLUCOSE (UA) NEG (NEGATIVE); URINE LEUKOCYTE ESTERASE LARGE Leu/uL (Negative); URINE PROTEIN 30 mg/dL (NEGATIVE); URINE UROBILINOGEN 0.2-1.0 mg/dL (0.2-1.0)
[2018-03-28 16:58] LABS: URINE BLOOD TRACE (NEGATIVE)
[2018-03-28] MEDS ORDERED: cefTRIAXone (Rocephin) 1 gm Inj ONE (17:03)
[2018-03-28 18:59] VITALS: BP 119/71; PULSE 69; RESP 18; TEMP 98.1
[2018-03-28 19:01] VITALS: O2SAT 98
--- NOTE | 2018-03-30 13:46 | ED PDOC ---
- Laboratory Results Result Diagrams: 03/28/18 14:02 03/28/18 14:02 - ECG O2 Sat by Pulse Oximetry: 98 Disposition - Clinical Impression Clinical Impression: Urinary tract infection - POA Present On Arrival: None - Disposition Disposition: Routine/Home Disposition Time: 13:47 Condition: STABLE Prescriptions: Cephalexin [cephalexin] 500 mg PO QID 10 Days cap Instructions: Urinary Tract Infections in Adults Forms: [facility] (Welsh) Progress Note - Review of Symptoms Events since last encounter: Lab results inform of Group B Strep + no further medical action necessary pt tx appropriately in ED
== END 2018-03-28 19:17 | disposition home or self-care (01) ==
LOC: H.ER 11:39
DX: N39.0 Urinary tract infection, site not specified (principal); Z88.0 Allergy status to penicillin; G82.20 Paraplegia, unspecified
CPT/HCPCS: 74177; 80053; 81003; 84153; 85025; 87086; 87181; 96374; 99283; J0696; Q9967